=== PATIENT | male | born 1965 | race Caucasian/White ===

== ENCOUNTER 2016-10-18 08:34 | Emergency (ER) | payer SELFPAY ==
[2016-10-18 08:54] VITALS: BP 175/96
[2016-10-18] MEDS ORDERED: Diphtheria,Pertussis(Acell),Tetanus Vaccine 0.5 ML Syringe IM ONE (09:02)
[2016-10-18] MEDS ORDERED: Ketorolac 60 MG/2 ML SDV IM ONE (09:02)
--- NOTE | 2016-10-18 09:07 | EDM.PDOC ---
ED HPI GENERAL MEDICAL PROBLEM - General Chief Complaint: Upper Extremity Injury/Pain Stated Complaint: INJURY/PAIN RIGHT ARM Time Seen by Provider: 10/18/16 08:56 - History of Present Illness INITIAL COMMENTS - FREE TEXT/NARRATIVE: HISTORY AND PHYSICAL: History of present illness: The patient is a 51-year-old male who presents with persistent pain to the dorsal aspect of his right hand after a piece of wood with a nail on it fall onto his hand one week ago and the nail punctured the skin at the dorsal hand. Patient states initially he had pain at the area but did not seek treatment as it seemed to be okay. He has noted over the last week that he has had persistent pain and now feels that the area is more swollen and he is worried about infection. 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 He has not noticed any redness or streaking up the arm and has no other systemic complaints or injuries. He is unsure of his last tetanus shot. He points to the area of injury at the soft tissue area of the dorsal hand proximal to the first MCP near the webspace of digits 1 and 2. The patient is also concerned that he might have sprained his wrist when the wood fell onto it Review of systems: As per history of present illness and below otherwise all systems reviewed and negative. Past medical history: As per history of present illness and as reviewed below otherwise noncontributory. Surgical history: As per history of present illness and as reviewed below otherwise noncontributory. Social history: No reported history of drug or alcohol abuse. Family history: As per history of present illness and as reviewed below otherwise noncontributory. Physical exam: Gen.: Well-developed well-nourished man nontoxic vital signs by me HEENT: Atraumatic, normocephalic, p negative for conjunctival pallor or scleral icterus, mucous membranes moist, throat clear, neck supple, nontender, trachea midline. Lungs: Clear to auscultation, breath sounds equal bilaterally, chest nontender. Heart: S1S2, regular rate and rhythm no murmurs Abdomen: Soft, nondistended, nontender. NABS Genitourinary: Deferred. Rectal: Deferred. Extremities: Atraumatic with no palpable bony deformities erythema or streaking appreciated more specifically at the right hand. There is a small well-healed wound seen just proximal to the base of the first MCP and there is some minimal surrounding induration appreciated without fluctuance and there is some ill- defined soft tissue swelling in this area but there is no warmth or erythema. Patient has full range of motion of the thumb including flexion extension and opponens. There is no other palpable bony deformities or soft tissue injury is appreciated in the hand and there is no compartment swelling or tenderness and no bony tenderness proximally at the wrist forearm elbow humerus or shoulder. The legs are negative for cords or calf pain. Neurovascular unremarkable. Neuro: Awake, alert, oriented. Cranial nerves II through XII unremarkable. Cerebellum unremarkable. Motor and sensory unremarkable throughout. Exam nonfocal. Diagnostics: X-ray right hand and wrist Therapeutics: Toradol Tdap I will give the patient a course of antibiotics due to the induration in the area and the discomfort and the location of the injury although there is no gross sign of cellulitis. I will also refer him to our hand specialists for further care as indicated Impression: Puncture wound to right hand subacute stable, persistent dorsal right hand and wrist pain Definitive disposition and diagnosis as appropriate pending reevaluation and review of above. Right Wrist Pain Score (Numeric/FACES): 3 - Related Data Allergies Allergy/AdvReac Type Severity Reaction Status Date / Time No Known Allergies Allergy Verified 06/25/16 11:32 Home Meds: Home Meds . [No Known Home Meds] 08/24/15 [History] Past Medical History Cardiovascular History: Reports: Other (See Below) Other Cardiovascular History: Pt reports he has "high blood pressure, heart murmur, and unwitnessed cardiac arrest with spontaneous resuscitation". Pt reports he was never seen by a doctor regarding these events. - Past Surgical History Musculoskeletal Surgical History: Reports: Other (See Below) Social & Family History - Family History Family Medical History: Noncontributory - Tobacco Use Smoking Status *Q: Current Every Day Smoker Years of Tobacco use: 10 Packs/Tins Daily: 1 - Alcohol Use Days Per Week of Alcohol Use: 2 Number of Drinks Per Day: 4 Total Drinks Per Week: 8 - Recreational Drug Use Recreational Drug Use: No Review of Systems - Review of Systems Review Of Systems: ROS reveals no pertinent complaints other than HPI. ED EXAM, GENERAL - Physical Exam Exam: See Below (See dictation) Course - Vital Signs Last Recorded V/S: Last Vital Signs Temp 36.4 C 10/18/16 08:47 Pulse 86 10/18/16 08:47 Resp 18 10/18/16 08:47 BP 175/96 H 10/18/16 08:47 Pulse Ox 96 10/18/16 08:47 - Orders/Labs/Meds Orders: Active Orders 24 hr Category Date Time Status Vaccines to be Administered [RC] PER UNIT ROUTINE Care 10/18/16 09:02 Active Meds: Medications Discontinued Medications Generic Name Dose Route Start Last Admin Trade Name Fresheela PRN Reason Stop Dose Admin Diphtheria/Tetanus/Acell Pertussis 0.5 ml 10/18/16 09:02 10/18/16 09:39 Adacel IM 10/18/16 09:03 0.5 ml .ONCE ONE Administration Ketorolac Tromethamine 60 mg 10/18/16 09:02 10/18/16 09:39 Toradol IM 10/18/16 09:03 60 mg ONETIME ONE Administration Departure - Departure Time of Disposition: 09:57 Disposition: Home, Self-Care 01 Condition: Good Clinical Impression: Hand pain, right Puncture wound of hand, right Qualifiers: Encounter type: initial encounter Foreign body presence: without foreign body Qualified Code(s): S61.431A - Puncture wound without foreign body of right hand , initial encounter - Discharge Information Forms: ED Department Discharge Additional Instructions: The following information is given to patients seen in the emergency department who are being discharged to home. This information is to outline your options for follow-up care. We provide all patients seen in our emergency department with a follow-up referral. The need for follow-up, as well as the timing and circumstances, are variable depending upon the specifics of your emergency department visit. If you don't have a primary care physician on staff, we will provide you with a referral. We always advise you to contact your personal physician following an emergency department visit to inform them of the circumstance of the visit and for follow-up with them and/or the need for any referrals to a consulting specialist. The emergency department will also refer you to a specialist when appropriate. This referral assures that you have the opportunity for followup care with a specialist. All of these measure are taken in an effort to provide you with optimal care, which includes your followup. Under all circumstances we always encourage you to contact your private physician who remains a resource for coordinating your care. When calling for followup care, please make the office aware that this follow-up is from your recent emergency room visit. If for any reason you are refused follow-up, please contact the [facility] emergency department at and ask to speak to the emergency department charge nurse. [facility] Primary care- Internal Medicine and Family [facility] [address] [place] [id number] [facility] Specialty clinic-Plastic Surgery and Hand Surgery Professional Building [address] [place] [id number] Please take [id number] medications for pain or the ibuprofen your per prescribed and also take antibiotics until they're completed. Try to ice the hand after use and follow-up with primary care or our hand specialist in the next few days and return to ER as needed as discussed - My Orders Last 24 Hours: My Active Orders 10/18/16 09:02 Vaccines to be Administered [RC] PER UNIT ROUTINE - Assessment/Plan Last 24 Hours: My Active Orders 10/18/16 09:02 Vaccines to be Administered [RC] PER UNIT ROUTINE
--- NOTE | 2016-10-18 09:52 | CR ---
EXAMINATION: Right hand and right wrist HISTORY: Puncture wound COMPARISON: None TECHNIQUE: 3 views of the right hand and 2 views of the right wrist FINDINGS: There is no acute osseous abnormality, dislocation, or fracture identified. Bone mineraliz ation and joint spaces appear normal. No subcutaneous gas. The radiocarpal alignment is normal. No f oreign bodies identified. IMPRESSION: No acute osseous abnormality identified within the right hand or right wrist.
== END 2016-10-18 10:16 | disposition home or self-care (01) ==
LOC: MW.ED 08:34
DX: S61.431A Puncture wound without foreign body of right hand, initial encounter (principal); F17.210 Nicotine dependence, cigarettes, uncomplicated; Z23 Encounter for immunization; W20.8XXA Other cause of strike by thrown, projected or falling object, initial encounter; W45.0XXA Nail entering through skin, initial encounter
CPT/HCPCS: 73100; 73130; 90471; 90715; 96372; 99283; J1885